=== PATIENT | female | born 1995 | race Caucasian/White ===

== ENCOUNTER 2024-08-28 20:15 | Emergency (ER) | payer OTHER, SELFPAY ==
[2024-08-28 20:22] VITALS: BP 142/89
--- NOTE | 2024-08-28 22:08 | ED.GENMED ---
History of Present Illness
General
Chief Complaint: Skin Surface Trauma
Source: patient
Exam Limitations: none
Time Seen by Provider: 08/28/24 20:55
Nursing documentation reviewed up to this point in time: agreed with
History of Present Illness
History of Present Illness:
28-year-old female presenting to the emergency department today with concerns of a cut to her left second digit from a knife while cutting a bagel at home prior to arrival. Denies numbness weakness or additional concerns.
Past History
Past History
ED Past Medical History: None; Negative Asthma, HTN, Hypercholesterolemia or NIDDM
ED Past Surgical History: None
Social History
Tobacco: Non-smoker
Alcohol: Occasional
Personal: Single
Living: alone
Review of Systems
Review of Systems
Allergies reviewed?: Yes
All Other Systems: ROS reviewed and negative except as documented in HPI and ROS
Phy Exam
Physical Exam
Physical Exam:
GENERAL: Alert , in no apparent distress
EYE: pupils equal and reactive
NECK: Supple, no significant adenopathy.
ENT: o/p clr, mmm.
CARDIAC: Regular rate and rhythm .
LUNGS: Clear breath sounds bilaterally, no acute respiratory distress, no wheezes/rales/rhonchi
ABDOMEN: Soft, without focal tenderness, no r/g, no cvat
NEUROLOGICAL: Alert and oriented, no focal neuro deficits
SKIN: 1.5 cm flap laceration to the left index finger distal radial aspect no involvement of the nailbed. Warm and dry, skin intact.
MUSCULOSKELETAL: No edema, well perfused.
PSYCH: Normal and appropriate interaction.
Course
Vital Signs
Initial and Last Documented VS:
Initial Vital Signs
Temp Pulse Resp BP Pulse Ox
98.4 F 63 18 142/89 100
08/28/24 20:22 08/28/24 20:22 08/28/24 20:22 08/28/24 20:22 08/28/24 20:22
Last Documented Vital Signs
Temp Pulse Resp BP Pulse Ox
98.4 F 63 18 142/89 100
08/28/24 20:22 08/28/24 20:22 08/28/24 20:22 08/28/24 20:22 08/28/24 20:22
Procedures
Laceration Closure
Left Distal Radial Second Finger:
Status of Wound: clean
Size of Wound in cm: 1.5
Description of Wound Edges: sharp and flap-well vascularized
Preparation: cleaned with saline
Anesthesia: 1% Lidocaine
Revision/Debridement: routine- no revision
Wound exploration: explored to base- no FB
Type of Closure: single layer closure
Skin Closure Material: 5-0 nylon
Number of sutures: 3
MDM/Problems Addressed
MDM/Problems Addressed:
28-year-old female presenting to the emergency department today with concerns of laceration to the left index finger that occurred prior to arrival from a serrated knife. Relatively superficial explored to its base no signs of foreign body.
Sutured with 3 total sutures. Patient was offered tetanus shot but refused. Otherwise low risk for infection. Stable for outpatient management advised for follow-up in 10 to 14 days for suture removal. Return precautions given.
*Critical Care Note
Total Time (30-74mins, 75-104mins- exclusive of procedures): Not Applicable
ED Attending Note
-
Portions of this chart may have been created with voice recognition software.� Occasional wrong word or��sound alike� substitutions may have occurred due to the inherent limitations of voice recognition software.
Discharge Plan
Departure
Patient Disposition: Home (Routine Discharge)
Date of Disposition: 08/28/24
Time of Disposition: 22:13
Patient with high blood pressure during this ER visit?: No
Condition: Good
Covid-19: Not Applicable
Discharge Problem:
Finger laceration
Instructions: Laceration Repair With Stitches (DC)
Prescriptions:
No Action
trazodone 50 MG tablet
50 mg PO HS Qty: 30 0RF
hydroxyzine HCl 25 MG tablet
25 mg PO BIDPRN PRN (Reason: Anxiety) Qty: 60 0RF
Referrals:
Zack Thayer MD [Family Provider, [facility]]
Activity Restrictions/Additional Instructions:
You came to the emergency department today with concerns of a laceration. This was cleaned thoroughly and closed with 3 stitches. Please keep the area clean covered and follow-up in 10 to 14 days for suture removal. Return for any worsening, new
or concerning symptoms.
Interventions
Interventions:
*Risk Screen - Suicide Last Done: 08/28/24 21:17
*General Assessment Last Done: 08/28/24 21:17
*Neglect/Abuse Screening Last Done: 08/28/24 21:17
ED-Skin Assessment Last Done: 08/28/24 21:17
Discharge Date and Time
Print Language: TELUGU
== END 2024-08-28 22:19 | disposition home or self-care (01) ==
LOC: EMR 20:15
PROVIDERS: EMERGENCY PHYSICIAN Emergency Medicine; FAMILY PHYSICIAN Family Medicine
DX: S61.211A Laceration without foreign body of left index finger without damage to nail, initial encounter (principal); W26.0XXA Contact with knife, initial encounter; Y93.G9 Activity, other involving cooking and grilling
CPT/HCPCS: 12001; 99282